=== PATIENT | male | born 1975 | race Caucasian/White ===

== ENCOUNTER 2024-09-12 15:21 | Observation (INO) ==
[2024-09-12 15:37] VITALS: BMI 30.2
[2024-09-12 16:04] LABS: HEMOGLOBIN 15.3 g/dL (13.5-18.0); MEAN CORPUSCULAR HEMOGLOBIN 29.4 pg (27.0-34.0)
[2024-09-12 16:07] LABS: BASOPHILS # (AUTO) 0.1 X10^3/uL (0.0-0.1); BASOPHILS % (AUTO) 1.2 % (0.2-1.0); EOSINOPHILS # (AUTO) 0.1 x10^3/uL (0.0-0.2); EOSINOPHILS % (AUTO) 1.4 % (0.9-2.9); HEMATOCRIT 43.7 % (42.0-54.0); LYMPHOCYTES # (AUTO) 3.1 X10^3/uL (1.3-2.9); LYMPHOCYTES % (AUTO) 30.8 % (21.0-51.0); MEAN CORPUSCULAR VOLUME 84.1 fL (80.0-100.0); MEAN PLATELET VOLUME 12.1 fL (7.4-11.0); MONOCYTES % (AUTO) 9.7 % (0.0-13.0); NEUTROPHILS # (AUTO) 5.8 x10^3/uL (2.2-4.8); NEUTROPHILS % (AUTO) 56.9 % (42.0-75.0); PLATELET COUNT 150 X10^3/uL (150.0-450.0); RED BLOOD COUNT 5.19 X10^6/uL (4.7-6.0); WHITE BLOOD COUNT 10.1 X10^3/uL (3.6-10.0)
[2024-09-12 16:17] LABS: ALANINE AMINOTRANSFERASE 46 Units/L (12-78); ALBUMIN 3.9 g/dL (3.4-5.0); ALKALINE PHOSPHATASE 82 Units/L (46-116); ASPARTATE AMINO TRANSFERASE 17 Units/L (15-37); BLOOD UREA NITROGEN 23 mg/dL (7-18); CALCIUM 8.8 mg/dL (8.5-10.1); CARBON DIOXIDE 29.3 mmol/L (21-32); CHLORIDE 102 mmol/L (98-107); COR NA(FOR HYPERGLY) 140 mmol/L (136-145); CREATININE 1.59 mg/dL (0.70-1.30); GLUCOSE 221 mg/dL (65-99); POTASSIUM 4.2 mmol/L (3.5-5.1); SODIUM 137 mmol/L (136-145); TOTAL PROTEIN 7.8 g/dL (6.4-8.2); eGFR NON BLACK RACES 50 (>60)
[2024-09-12] MEDS ORDERED: VANCOMYCIN IV *PREMIX 1 G/200 ML BAG 1 G/200 ML PIGGYBACK IV ONE (16:32)
[2024-09-12] MEDS: VANCOMYCIN IV *PREMIX 1 G/200 ML BAG 1 G/200 ML PIGGYBACK IV ONE (16:35)
[2024-09-12] MEDS ORDERED: TORADOL 30 MG VIAL ONE (16:38)
--- NOTE | 2024-09-12 16:41 | CT ---
EXAM: CT LEFT UPPER EXTREMITY WITHOUT CONTRAST HISTORY: Left elbow swelling COMPARISON: None. TECHNIQUE: Axial images were acquired of the LEFT UPPER EXTREMITY without IV contrast. Sagittal and coronal reformatted images were provided. All images were reviewed in a variety of windows and levels. RADIATION REDUCTION TECHNIQUE: Automated exposure control, Adjustment of the mA and/or kV according to patient size, or iterative reconstruction techniques were used. FINDINGS: Please note that lack of IV contrast limits evaluation of soft tissue structures and vascular detail. There is extensive soft tissue edema with fluid stranding and inflammation involving the subcutaneous tissues overlying the distal aspect of the arm, around the region of the elbow joint, and throughout the proximal portion of the radius and ulna region. There is no evidence of cortical bone destruction to suggest osteomyelitis. There is no evidence of fracture or joint dislocation. There is a pocket of fluid that has no discernible mckeon measuring 38 x 18 x 53 mm located just dorsal to the olecranon. IMPRESSION: 1. THERE IS A POCKET OF FLUID THAT HAS NO DISCERNIBLE MCKEON MEASURING 38 X 18 X 53 MM LOCATED JUST DORSAL TO THE OLECRANON. THIS COULD BE SECONDARY TO SUCH ETIOLOGY , BUT NOT LIMITED TO TRAUMA AND INFECTION. FOLLOW-UP TO COMPLETE RESOLUTION MAY BE OBTAINED CLINICALLY INDICATED. 2. THERE IS NO EVIDENCE OF CORTICAL BONE DESTRUCTION TO SUGGEST OSTEOMYELITIS. 3. THERE IS NO EVIDENCE OF FRACTURE OR JOINT DISLOCATION. THIS IS AN ELECTRONICALLY VERIFIED FINAL REPORT 09/12/2024 4:38 PM - Electronically signed by Eddie Gregory MD
[2024-09-12] MEDS: TORADOL 30 MG VIAL IVP ONE (16:44)
--- NOTE | 2024-09-12 19:04 | DR.EXTPAIN ---
HPI Time seen Time Seen by Provider: 09/12/24 15:45 PCP Primary Care Physician: Tatiana Allen HPI Comment HPI Comment: Patient with complaint of swelling and redness since . Has been worsening and started becoming painful. Patient states he is still able to move his left elbow but it causes some discomfort. Patient reports he had a small cut on the elbow which had scabbed over from previous week. Denies fever. Complaint/Symptoms Chief Complaint:: Patient noticed swelling to left elbow on and Reddness was noted seeing on Friday. Swelling and reddness got worse each day and today he has increased pain to left elbow when ambulated. Patient states he had cut his elbow a week ago, he is unsure what he cut it on, but that the cut has been scabbed over. He denies any new cuts, falls, or bites. Self Treatment fo Chief Complaint: Aleve on 09/11/24 evening COVID-19 Coronavirus risk:travel/contact w/high risk person: No Has patient experienced Coronavirus symptoms: No Source History Provided: Patient Mode of arrival Mode of Arrival: Ambulatory Timing Onset of Chief Complaint: 09/30/24 PMH PMH Past Medical History: Yes Past Medical History: Anxiety, Arthritis, Diabetes, Gout, Headaches, Hypertension and Kidney Stones Past Surgical History: Yes Surgical History: Ortho Surgery Family History History of Family Medical Conditions: Yes Family Medical History: Diabetes Mellitus, Cancer and Hypertension Social History Does patient currently use any type of tobacco product: No Have you used tobacco products in the last 12 months: No Type of Tobacco Use: None Alcohol Use: None Do you use any recreational Drugs:: No Lives With: Spouse and Family Lives Where: Home Travel Risk Coronavirus risk:travel/contact w/high risk person: No Has patient experienced Coronavirus symptoms: No Infectious screening In the last 2 months have you had wt loss of >10#?: NO Have you had fever, night sweats or hemotysis?: No Have you traveled outside the country in the last 6 months?: No Isolation: Standard ROS Review of Systems Constitutional: No Symptoms Reported Eyes: No Symptoms Reported ENTM: No Symptoms Reported Respiratoy: No Symptoms Reported Cardiovascular: No Symptoms Reported Gastrointestinal/Abdominal: No Symptoms Reported Genitourinary: No Symptoms Reported Neurological: No Symptoms Reported Musculoskeletal: No Symptoms Reported Integumentary: See HPI Hematologic/Lymphatic: No Symptoms Reported Endocrine: No Symptoms Reported Psychiatric: No Symptoms Reported All Other Systems: Reviewed and Negative PE Vital Signs Vitals: Vital Signs Temperature 98.3 F Pulse Rate 75 Pulse Rate 77 Pulse Rate 79 Pulse Rate 78 Pulse Rate 79 Pulse Rate 79 Pulse Rate 83 Pulse Rate 82 Pulse Rate 82 Pulse Rate 81 Pulse Rate 81 Pulse Rate 83 Pulse Rate 80 Pulse Rate 83 Respiratory Rate 20 Respiratory Rate 20 Blood Pressure 145/84 Blood Pressure 145/84 Blood Pressure 143/87 O2 Sat by Pulse Oximetry 94 O2 Sat by Pulse Oximetry 96 O2 Sat by Pulse Oximetry 97 O2 Sat by Pulse Oximetry 98 O2 Sat by Pulse Oximetry 99 O2 Sat by Pulse Oximetry 92 O2 Sat by Pulse Oximetry 98 O2 Sat by Pulse Oximetry 96 O2 Sat by Pulse Oximetry 98 O2 Sat by Pulse Oximetry 96 O2 Sat by Pulse Oximetry 96 O2 Sat by Pulse Oximetry 99 O2 Sat by Pulse Oximetry 96 O2 Sat by Pulse Oximetry 98 General Limitations: No Limitations General Appearance: Alert and In No Apparent Distress Head Head Exam: Normal Inspection Eyes Eye exam: Normal Appearance ENT ENT Exam: Normal Exam Neck Neck Exam: Normal Inspection Chest Chest Inspection: Normal Inspection Respiratory Respiratory Exam: Normal Lung Sounds Bilat Cardiovascular Cardiovascular Exam: Regular Rate and Normal Rhythm Abdominal Exam Abdominal Exam: Normal Inspection, Normal Bowel Sounds and Soft Extremities Extremities Exam: Normal Inspection Back Back Exam: Normal Inspection Neurological Neurological Exam: Alert, Oriented X3 and CN II-XII Intact Psychiatric Psychiatric Exam: Normal Affect and Normal Mood Skin Skin Exam: Other (Cellulitis on left elbow. No abscess.) COURSE Treatment Treatment: Improvement noticeable with IV vancomycin during ER stay. Discussed results of workup with patient and family. Consultation Called: 19:03 Consultation Comments: Discussed case with Dr. Fong and she is agreeable to admission. ROR Labs Reviewed Laboratory Results Reviewed?: Yes 09/12/24 15:52 09/12/24 15:52 Laboratory: WBC 10.1 X10^3/uL (3.6-10.0) H 09/12/24 15:52 RBC 5.19 X10^6/uL (4.7-6.0) 09/12/24 15:52 Hgb 15.3 g/dL (13.5-18.0) 09/12/24 15:52 Hct 43.7 % (42.0-54.0) 09/12/24 15:52 MCV 84.1 fL (80.0-100.0) 09/12/24 15:52 MCH 29.4 pg (27.0-34.0) 09/12/24 15:52 MCHC 35.0 g/dL (33.0-35.0) 09/12/24 15:52 RDW 13.0 % (11.6-16.5) 09/12/24 15:52 Plt Count 150 X10^3/uL (150.0-450.0) 09/12/24 15:52 MPV 12.1 fL (7.4-11.0) H 09/12/24 15:52 Neut % (Auto) 56.9 % (42.0-75.0) 09/12/24 15:52 Lymph % (Auto) 30.8 % (21.0-51.0) 09/12/24 15:52 [place] % (Auto) 9.7 % (0.0-13.0) 09/12/24 15:52 Eos % (Auto) 1.4 % (0.9-2.9) 09/12/24 15:52 Baso % (Auto) 1.2 % (0.2-1.0) H 09/12/24 15:52 Neut # (Auto) 5.8 x10^3/uL (2.2-4.8) H 09/12/24 15:52 Lymph # (Auto) 3.1 X10^3/uL (1.3-2.9) H 09/12/24 15:52 [place] # (Auto) 1.0 x10^3/uL (0.3-0.8) H 09/12/24 15:52 Eos # (Auto) 0.1 x10^3/uL (0.0-0.2) 09/12/24 15:52 Baso # (Auto) 0.1 X10^3/uL (0.0-0.1) 09/12/24 15:52 Absolute Nucleated RBC 0.3 /100WBC 09/12/24 15:52 Sodium 137 mmol/L (136-145) 09/12/24 15:52 Corrected Sodium 140 mmol/L (136-145) 09/12/24 15:52 Potassium 4.2 mmol/L (3.5-5.1) 09/12/24 15:52 Chloride 102 mmol/L (98-107) 09/12/24 15:52 Carbon Dioxide 29.3 mmol/L (21-32) 09/12/24 15:52 BUN 23 mg/dL (7-18) H 09/12/24 15:52 Creatinine 1.59 mg/dL (0.70-1.30) H 09/12/24 15:52 Est GFR (MDRD) Af Amer 60 (>60) 09/12/24 15:52 Est GFR (MDRD) Non-Af 50 (>60) L 09/12/24 15:52 Glucose 221 mg/dL (65-99) H 09/12/24 15:52 Calcium 8.8 mg/dL (8.5-10.1) 09/12/24 15:52 Corrected Calcium TNP 09/12/24 15:52 Total Bilirubin 1.40 mg/dL (0.2-1.0) H 09/12/24 15:52 AST 17 Units/L (15-37) 09/12/24 15:52 ALT 46 Units/L (12-78) 09/12/24 15:52 Alkaline Phosphatase 82 Units/L (46-116) 09/12/24 15:52 C-Reactive Protein 43.30 mg/L (0-3.0) H 09/12/24 15:52 Total Protein 7.8 g/dL (6.4-8.2) 09/12/24 15:52 Albumin 3.9 g/dL (3.4-5.0) 09/12/24 15:52 Globulin 3.9 g/dL (2.5-4.5) 09/12/24 15:52 Albumin/Globulin Ratio 1.0 Ratio (1.1-2.1) L 09/12/24 15:52 Opioid Opioid Risk Tool Age ([place] box if 16-45): No History of Preadolescent Sexual Abuse: No Total: 0 Total Score Risk Category: Low Risk Copyright: Refugio JESUS predicting aberrant behaviors Discharge Plan Diagnosis Discharge Problem: Cellulitis of left upper extremity Discharge Plan Patient Disposition: ADMITTED INPATIENT Condition: Stable Prescriptions: No Action atorvastatin 10 mg Tablet 10 mg PO DAILY aspirin 81 mg Tablet PO meloxicam 15 mg tablet 15 mg PO QDAY glimepiride 4 mg tablet 4 mg PO BID metoprolol tartrate 50 mg tablet 50 mg PO BID losartan 100 mg tablet 100 mg PO QDAY loratadine 10 mg Tablet 10 mg PO QDAY allopurinol 100 mg tablet 100 mg PO QDAY citalopram 20 mg tablet 20 mg PO QDAY metformin 500 mg tablet extended release 24 hr 1,000 mg PO BID Health Concerns: Post Hospitalization: new medications and changes needed to prevent readmission or further decline. Pt educated and given instructions on all concerns. Plan of Treatment: Continue with present treatment and follow up plan. Pt is to keep follow up appointment as instructed and take medications as ordered. Orders to Discharge Patient Discharge Orders: Transfer (Routine); Ordered 09/12/24 Ordered By: Scar Sargent Follow ups/Referrals Follow ups/Referrals: TATIANA ALLEN [Primary Care Provider, MEDICAL] - 3 days Instructions Stand Alone Forms: Find Help Web Site, Post Hospital Follow Up Care Print Language: SERBIAN
[2024-09-12] MEDS ORDERED: CONSULT PHARMACY - POTASSIUM & MAGNESIUM XX SCH (20:22)
[2024-09-12] MEDS ORDERED: MOTRIN TAB 600 MG PO PRN (20:22)
[2024-09-12] MEDS ORDERED: PHARMACY CONSULT - VANCOMYCIN XX SCH (20:22)
[2024-09-12] MEDS ORDERED: ZOFRAN TAB 4 MG PO PRN (20:22)
[2024-09-12] MEDS ORDERED: NS 1,000 ML IV 1,000 ML ONE (20:48)
[2024-09-12] MEDS: LOPRESSOR TAB 50 MG PO SCH (20:56)
[2024-09-12] MEDS: NS 1,000 ML IV 1,000 ML IV SCH (20:57)
[2024-09-12] MEDS: SNACK - Diabetic Appropriate PO SCH (20:58)
[2024-09-12] MEDS: VANCOMYCIN HCL 1 G in D5W 250 ML IV 250 ML IV SCH (22:00)
[2024-09-13 04:48] LABS: BASOPHILS # (AUTO) 0.1 X10^3/uL (0.0-0.1); BASOPHILS % (AUTO) 1.1 % (0.2-1.0); EOSINOPHILS # (AUTO) 0.3 x10^3/uL (0.0-0.2); EOSINOPHILS % (AUTO) 2.5 % (0.9-2.9); HEMATOCRIT 41.3 % (42.0-54.0); HEMOGLOBIN 14.5 g/dL (13.5-18.0); LYMPHOCYTES # (AUTO) 2.9 X10^3/uL (1.3-2.9); LYMPHOCYTES % (AUTO) 28.1 % (21.0-51.0); MEAN CORPUSCULAR HEMOGLOBIN 29.6 pg (27.0-34.0); MEAN CORPUSCULAR VOLUME 84.5 fL (80.0-100.0); MEAN PLATELET VOLUME 12.2 fL (7.4-11.0); NEUTROPHILS # (AUTO) 6.1 x10^3/uL (2.2-4.8); NEUTROPHILS % (AUTO) 58.3 % (42.0-75.0); PLATELET COUNT 152 X10^3/uL (150.0-450.0); RED BLOOD COUNT 4.89 X10^6/uL (4.7-6.0); RED CELL DISTRIBUTION WIDTH 13.1 % (11.6-16.5); WHITE BLOOD COUNT 10.5 X10^3/uL (3.6-10.0)
[2024-09-13 05:00] LABS: ALANINE AMINOTRANSFERASE 40 Units/L (12-78); ALBUMIN 3.6 g/dL (3.4-5.0); ALKALINE PHOSPHATASE 69 Units/L (46-116); ASPARTATE AMINO TRANSFERASE 17 Units/L (15-37); BLOOD UREA NITROGEN 27 mg/dL (7-18); CALCIUM 8.8 mg/dL (8.5-10.1); CARBON DIOXIDE 27.3 mmol/L (21-32); CHLORIDE 104 mmol/L (98-107); COR NA(FOR HYPERGLY) 139 mmol/L (136-145); CREATININE 1.47 mg/dL (0.70-1.30); GLUCOSE 162 mg/dL (65-99); POTASSIUM 3.9 mmol/L (3.5-5.1); SODIUM 138 mmol/L (136-145); TOTAL PROTEIN 7.4 g/dL (6.4-8.2); eGFR NON BLACK RACES 55 (>60)
[2024-09-13] MEDS: COZAAR PO SCH (08:36)
[2024-09-13] MEDS: LIPITOR TAB 10 MG PO SCH (08:37)
[2024-09-13] MEDS: VANCOMYCIN IV *PREMIX 1 G/200 ML BAG 1 G/200 ML PIGGYBACK IV SCH (08:37)
[2024-09-13] MEDS: ASPIRIN 81 MG CHEWTAB PO SCH (08:37)
[2024-09-13] MEDS: MOBIC TAB 15 MG PO SCH (08:43)
[2024-09-13 15:30] LABS: CREATININE 1.33 mg/dL (0.70-1.30); VANCOMYCIN,TROUGH 15.4 ug/mL (15-20)
[2024-09-13 21:13] LABS: CREATININE 1.41 mg/dL (0.70-1.30)
[2024-09-13 21:16] LABS: VANCOMYCIN,TROUGH 20.5 ug/mL (15-20)
[2024-09-13] MEDS: PHARMACY COMMENT IV ONE (21:30)
[2024-09-13] MEDS: NovoLIN R (or HumuLIN R) SUBCUT PRN (22:30)
[2024-09-13] MEDS: CELEXA PO SCH (23:12)
[2024-09-14] MEDS: VANCOMYCIN HCL 1 G in D5W 250 ML IV 250 ML IV SCH (04:13)
[2024-09-14 06:15] LABS: BASOPHILS # (AUTO) 0.1 X10^3/uL (0.0-0.1); EOSINOPHILS # (AUTO) 0.2 x10^3/uL (0.0-0.2); EOSINOPHILS % (AUTO) 2.7 % (0.9-2.9); MONOCYTES # (AUTO) 0.7 x10^3/uL (0.3-0.8)
[2024-09-14 06:27] LABS: HEMATOCRIT 44.2 % (42.0-54.0); HEMOGLOBIN 15.3 g/dL (13.5-18.0); LYMPHOCYTES # (AUTO) 2.7 X10^3/uL (1.3-2.9); LYMPHOCYTES % (AUTO) 31.3 % (21.0-51.0); MEAN CORPUSCULAR HEMOGLOBIN 29.3 pg (27.0-34.0); MEAN CORPUSCULAR HGB CONC 34.6 g/dL (33.0-35.0); MEAN CORPUSCULAR VOLUME 84.8 fL (80.0-100.0); MEAN PLATELET VOLUME 11.7 fL (7.4-11.0); MONOCYTES % (AUTO) 7.7 % (0.0-13.0); NEUTROPHILS % (AUTO) 57.3 % (42.0-75.0); PLATELET COUNT 157 X10^3/uL (150.0-450.0); RED BLOOD COUNT 5.21 X10^6/uL (4.7-6.0); RED CELL DISTRIBUTION WIDTH 13.2 % (11.6-16.5); WHITE BLOOD COUNT 8.7 X10^3/uL (3.6-10.0)
[2024-09-14 06:31] LABS: ALANINE AMINOTRANSFERASE 38 Units/L (12-78); ALBUMIN 3.6 g/dL (3.4-5.0); ALKALINE PHOSPHATASE 68 Units/L (46-116); ASPARTATE AMINO TRANSFERASE 16 Units/L (15-37); BLOOD UREA NITROGEN 21 mg/dL (7-18); CALCIUM 8.9 mg/dL (8.5-10.1); CARBON DIOXIDE 24.3 mmol/L (21-32); CHLORIDE 107 mmol/L (98-107); COR NA(FOR HYPERGLY) 142 mmol/L (136-145); CREATININE 1.31 mg/dL (0.70-1.30); GLUCOSE 205 mg/dL (65-99); POTASSIUM 4.3 mmol/L (3.5-5.1); SODIUM 139 mmol/L (136-145); TOTAL PROTEIN 7.7 g/dL (6.4-8.2); eGFR NON BLACK RACES > 60 (>60)
[2024-09-14] MEDS: TORADOL 15 MG VIAL IVP ONE (08:43)
[2024-09-14 11:32] VITALS: BP 141/72; PULSE 75; RESP 16; TEMP 97.9; O2SAT 98
[2024-09-14] MEDS: VANCOMYCIN IV *PREMIX 1 G/200 ML BAG 1 G/200 ML PIGGYBACK IV SCH (12:14)
== END 2024-09-14 15:15 | disposition home or self-care (01) ==
LOC: MED/SURG 15:21 → ER 15:21 → MED/SURG 20:25
PROVIDERS: ADMIT Internal Medicine; ATTEND Internal Medicine
DX: L03.114 Cellulitis of left upper limb; Z87.39 Personal history of other diseases of the musculoskeletal system and connective tissue; Z65.8 Other specified problems related to psychosocial circumstances; E80.6 Other disorders of bilirubin metabolism; R70.0 Elevated erythrocyte sedimentation rate; E11.65 Type 2 diabetes mellitus with hyperglycemia; N18.31 Chronic kidney disease, stage 3a; I12.9 Hypertensive chronic kidney disease with stage 1 through stage 4 chronic kidney disease, or unspecified chronic kidney disease; R79.82 Elevated C-reactive protein (CRP); F41.8 Other specified anxiety disorders